=== PATIENT | female | born 1990 | race Caucasian/White ===

== ENCOUNTER 2019-11-29 18:42 | Emergency (ER) | payer BC ==
[2019-11-29] MEDS ORDERED: Promethazine 25 MG/ML SDV IM ONE ×2 (19:38→19:45)
[2019-11-29 19:57] LABS: CHLORIDE,CL 104 mmol/L (98-107); SODIUM,NA 141 mmol/L (136-145)
[2019-11-29 20:02] LABS: ANION GAP 19.3 mmol/L (10-20)
--- NOTE | 2019-11-29 20:22 | EDM.PDOC ---
ED HPI GENERAL MEDICAL PROBLEM - General Chief Complaint: General Stated Complaint: ANXIETY ATTACK Time Seen by Provider: 11/29/19 19:00 Source of Information: Reports: Patient, Family History Limitations: Reports: No Limitations - History of Present Illness INITIAL COMMENTS - FREE TEXT/NARRATIVE: Patient states while she was at work today she started having numbness and tingling all over and nausea states she went home where she started then having generalized body pain a 10 out of 10 all over. She states she has had these before and had to be treated with IV fluids and pain medicines she states she usually goes to [facility] for treatment. She states she has not vomited any but it had generalized dry heaves today she states she was able to eat this morning and drink a couple of sodas and some water with no issues. She states she has not had anything to eat since about 2: 00 she describes the pain as a generalized crampy tightening type pain all over as a10/to have morphine or fentanyl Duration: Hour(s): Quality: Reports: Ache Severity: Severe Improves with: Reports: None Worsens with: Reports: None Associated Symptoms: Reports: Nausea/Vomiting. Denies: Confusion, Chest Pain, Cough, Headaches, Loss of Appetite, Malaise, Seizure, Shortness of Breath, Weakness Generalized Pain Score (Numeric/FACES): 10 - Related Data Allergies Allergy/AdvReac Type Severity Reaction Status Date / Time No Known Allergies Allergy Verified 11/29/19 18:53 Home Meds: Home Meds ClonazePAM [KlonoPIN] 0.5 mg BID 11/29/19 [History] Escitalopram Oxalate [Lexapro] 20 mg DAILY 11/29/19 [History] Past Medical History Psychiatric History: Reports: Anxiety, Depression Endocrine/Metabolic History: Reports: Hypokalemia - Past Surgical History HEENT Surgical History: Reports: Oral Surgery Social & Family History - Tobacco Use Smoking Status *Q: Never Smoker - Recreational Drug Use Recreational Drug Use: Yes Drug Use in Last 12 Months: Yes Recreational Drug Type: Reports: Marijuana/Hashish ED ROS GENERAL - Review of Systems Review Of Systems: See Below Constitutional: Reports: No Symptoms HEENT: Reports: No Symptoms Respiratory: Reports: No Symptoms Cardiovascular: Reports: No Symptoms Endocrine: Reports: No Symptoms GI/Abdominal: Reports: Abdominal Pain, Nausea, Vomiting : Denies: Discharge, Dysuria, Flank Pain, Frequency, Urgency Musculoskeletal: Reports: Muscle Stiffness, Other (Generalized pain all over) Skin: Reports: No Symptoms Neurological: Reports: Paresthesia, Tingling. Denies: Confusion, Dizziness, Headache, Numbness, Pre-Existing Deficit, Seizure, Syncope, Trouble Speaking, Difficulty Walking, Weakness Psychiatric: Reports: No Symptoms Hematologic/Lymphatic: Reports: No Symptoms Immunologic: Reports: No Symptoms ED EXAM, GENERAL - Physical Exam Exam: See Below Exam Limited By: No Limitations General Appearance: Alert, WD/WN, No Apparent Distress, Other (Patient is lying in the bed no acute distress all vital signs are noted to be normal moving all extremities) Eye Exam: Bilateral Eye: EOMI, PERRL Ears: Normal External Exam, Normal Canal, Hearing Grossly Normal, Normal TMs Nose: Normal Inspection, Normal Mucosa, No Blood Throat/Mouth: Normal Inspection, Normal Lips, Normal Teeth, Normal Gums, Normal Oropharynx, Normal Voice, No Airway Compromise, Other (Moist mucous membranes) Head: Atraumatic Neck: Normal Inspection, Supple, Non-Tender, Full Range of Motion Respiratory/Chest: No Respiratory Distress, Lungs Clear, Normal Breath Sounds, No Accessory Muscle Use, Chest Non-Tender Cardiovascular: Normal Peripheral Pulses, Regular Rate, Rhythm, No Edema, No Gallop, No JVD, No Murmur, No Rub GI/Abdominal: Normal Bowel Sounds, Soft, Non-Tender, No Organomegaly, No Distention. No: Guarding, Rigid, Rebound, Tender (Negative heel slap negative pelvic rock negative CVA tenderness) Back Exam: Normal Inspection, Full Range of Motion. No: CVA Tenderness (L), CVA Tenderness (R) Extremities: Normal Inspection, Normal Range of Motion, Non-Tender, No Pedal Edema, Normal Capillary Refill Neurological: Alert, Oriented, CN II-XII Intact, Normal Cognition, Normal Gait Psychiatric: Normal Affect, Normal Mood Skin Exam: Warm, Dry, Intact, Normal Color, No Rash Lymphatic: No Adenopathy Course - Vital Signs Text/Narrative:: Records were reviewed from [facility] from April 29, 2019 where she had the same signs symptoms Potassium today is 3.3 she will be treated with p.o. potassium and magnesium she is given 25 mg of Phenergan IM her blood glucose level today 190 serum ketone is ordered but it is a send out UA was ordered to check for proteinuria and glucose patient states she cannot urinate Patient states she has been told multiple times that her sugar has been high when this episodes occur she states she has not followed up with her primary care provider about this but states she will now States she is feeling better after the Phenergan the pain is come down to about a 6 and the tightness is well the nausea is almost gone Last Recorded V/S: Last Vital Signs Temp 35.8 C 11/29/19 18:42 Pulse 86 11/29/19 18:42 Resp 18 11/29/19 18:42 BP 134/94 H 11/29/19 18:42 Pulse Ox 99 11/29/19 18:42 - Orders/Labs/Meds Orders: Active Orders 24 hr Category Date Time Status B-HYDROXYBUTYRATE [REF] Stat Lab 11/29/19 20:16 Ordered UA W/O MICR POC [POC] Stat Lab 11/29/19 20:16 Ordered Magnesium Oxide Med 11/29/19 20:27 Once 400 mg PO ONETIME ONE Potassium Chloride [Klor-Con M20] Med 11/29/19 20:26 Once 40 meq PO ONETIME ONE Promethazine [Take Home: Promethazine 25 MG, 4 Tab Pack Med 11/29/19 20:27 Once ] 1 packet PO ONETIME ONE Labs: Laboratory Tests 11/29/19 Range/Units 19:36 Sodium 141 (136-145) mmol/L Potassium 3.3 L (3.5-5.1) mmol/L Chloride 104 (98-107) mmol/L Carbon Dioxide 21 (21-32) mmol/L Anion Gap 19.3 (10-20) mmol/L BUN 17 (7-18) mg/dL Creatinine 0.8 (0.55-1.02) mg/dL Est Cr Clr Drug Dosing 80.26 mL/min Estimated GFR (MDRD) > 60 Glucose 190 H (74-106) mg/dL Calcium 9.1 (8.5-10.1) mg/dL Meds: Medications Discontinued Medications Generic Name Dose Route Start Last Admin Trade Name Freq PRN Reason Stop Dose Admin Promethazine HCl 25 mg 11/29/19 19:45 11/29/19 19:45 Phenergan IM 11/29/19 19:46 25 mg ONETIME ONE Administration Departure - Departure Time of Disposition: 20:40 Disposition: Home, Self-Care 01 Condition: Good Clinical Impression: Hypokalemia, Nausea & vomiting, Hyperglycemia, Cramps, muscle, general - Discharge Information *PRESCRIPTION DRUG MONITORING PROGRAM REVIEWED*: No *COPY OF PRESCRIPTION DRUG MONITORING REPORT IN PATIENT JIMENA: No Referrals: Jaden Wolfe MD [Primary Care Provider] - Forms: ED Department Discharge Sepsis Event Note - Evaluation Sepsis Screening Result: No Definite Risk - Focused Exam Vital Signs: Vital Signs Temp Pulse Resp BP Pulse Ox 11/29/19 18:42 35.8 C 86 18 134/94 H 99 Date Exam was Performed: 11/29/19 Time Exam was Performed: 20:28 - Problem List & Annotations (1) Hypokalemia SNOMED Code(s): 87774513 Code(s): E87.6 - HYPOKALEMIA Status: Acute Current Visit: Yes - My Orders Last 24 Hours: My Active Orders 11/29/19 20:16 B-HYDROXYBUTYRATE [REF] Stat UA W/O MICR POC [POC] Stat 11/29/19 20:26 Potassium Chloride [Klor-Con M20] 40 meq PO ONETIME ONE 11/29/19 20:27 Magnesium Oxide 400 mg PO ONETIME ONE Promethazine [Take Home: Promethazine 25 MG, 4 Tab Pack] 1 packet PO ONETIME ONE - Assessment/Plan Last 24 Hours: My Active Orders 11/29/19 20:16 B-HYDROXYBUTYRATE [REF] Stat UA W/O MICR POC [POC] Stat 11/29/19 20:26 Potassium Chloride [Klor-Con M20] 40 meq PO ONETIME ONE 11/29/19 20:27 Magnesium Oxide 400 mg PO ONETIME ONE Promethazine [Take Home: Promethazine 25 MG, 4 Tab Pack] 1 packet PO ONETIME ONE
[2019-11-29] MEDS ORDERED: Potassium Chloride 20 MEQ Tab.ER PO ONE (20:26)
[2019-11-29] MEDS ORDERED: Magnesium Oxide 400 MG Tab PO ONE (20:27)
[2019-11-29] MEDS ORDERED: Take Home: Promethazine 25 MG, 4 Tab Pack PO ONE (20:27)
== END 2019-11-29 20:45 | disposition home or self-care (01) ==
LOC: VM.ED 18:42
DX: E87.6 Hypokalemia (principal); R73.9 Hyperglycemia, unspecified; R11.2 Nausea with vomiting, unspecified; F41.9 Anxiety disorder, unspecified; F32.9 Major depressive disorder, single episode, unspecified; Z79.899 Other long term (current) drug therapy; Z98.890 Other specified postprocedural states
CPT/HCPCS: 36415; 80048; 82010; 96372; 99284-25; A9270-GY; J2550